=== PATIENT | female | born 1985 | race American Indian/Alaskan Native ===

== ENCOUNTER 2019-12-05 14:26 | Day surgery (SDC) | payer MEDICAID ==
[2019-12-05] MEDS ORDERED: ONDANSETRON 4 MG/2 ML INJ ONE (14:30)
[2019-12-05] MEDS ORDERED: propofoL 200 MG/20 ML VIAL IV ONE (14:44)
[2019-12-05] MEDS ORDERED: SUCCINYLCHOLINE CHLORIDE 200 MG/10 ML INJ MDV ONE (14:44)
[2019-12-05] MEDS ORDERED: SODIUM CHLORIDE 0.9% 1000 ML 1,000 ML ONE (14:44)
[2019-12-05] MEDS ORDERED: fentaNYL 100 MCG/2 ML INJ ONE (14:44)
[2019-12-05] MEDS ORDERED: ROCURONIUM 50 MG/5 ML INJ IV ONE (14:44)
[2019-12-05] MEDS ORDERED: LIDOCAINE MPF (2%) 20 MG/1 ML VIAL 5 ML ONE (14:44)
--- NOTE | 2019-12-05 15:31 | Anesthesia Consultation ---
Anesthesia Consult and Med Hx Date of service: 12/05/19 - Airway Anesthetic Teeth Evaluation: Good ROM Head & Neck: Adequate Mental/Hyoid Distance: Adequate Mallampati Class: Class II Intubation Access Assessment: Probably Good - Pulmonary Exam CTA: Yes - Cardiac Exam Cardiac Exam: RRR - Pre-Operative Health Status ASA Pre-Surgery Classification: ASA2, Emergency Proposed Anesthetic Plan: General - Pulmonary Hx Smoking: Yes ([facility] only) Hx Respiratory Symptoms: No - Cardiovascular System Hx Hypertension: No Hx Heart Attack/AMI: No Hx Percutaneous Transluminal Coronary Angioplasty (PTCA): No - Central Nervous System CVA: No - Gastrointestinal Hx Gastroesophageal Reflux Disease: No - Endocrine Hx Renal Disease: No Hx Liver Disease: No Hx Insulin Dependent Diabetes: No Hx Non-Insulin Dependent Diabetes: No Hx Thyroid Disease: No - Hematic Hx Anemia: No (Recent outpatient Hb 12) - Other Systems Hx Substance Use: Yes ([facility]) Hx Obesity: Yes (BMI 34) - Additional Comments Anesthesia Medical History Comments: No hx anesthetic complications. Patient with recent spontaneous and now with abdominal pain. Sent from OB clinic for emergent dx laparoscopy for possible ectopic . CBC, T&C 2units drawn preop.
[2019-12-05] MEDS ORDERED: ONDANSETRON 4 MG/2 ML INJ IV PRN (15:32)
[2019-12-05] MEDS ORDERED: HYDROmorphone 1 MG/1 ML INJ IV PRN (15:32)
--- NOTE | 2019-12-05 15:32 | Anesthesia Day of Surgery ---
Anesthesia Day of Surgery - Day of Surgery Patient Examined: Yes Patient H&P Reviewed: Yes Patient is NPO: No (last solids (crackers) 12/05/19 1100; emergent surgery)
[2019-12-05] MEDS ORDERED: MIDAZOLAM 2 MG/2 ML INJ ONE (15:36)
[2019-12-05] MEDS ORDERED: SODIUM CHLORIDE 0.9% 1000 ML 1,000 ML IV SCH (15:45)
[2019-12-05 16:06] LABS: Hematocrit 38.9 % (30.3-42.9); Hemoglobin 12.6 gm/dl (10.1-14.3); Mean Corpuscular HGB Conc 33 % (30-34); Mean Corpuscular Volume 91 fl (79-97); Platelet Count 280 K/mm3 (140-440); Red Blood Count 4.29 M/mm3 (3.65-5.03); Red Cell Distribution Width 14.1 % (13.2-15.2)
[2019-12-05] MEDS ORDERED: BUPIVACAINE/PF (0.5%) 5 MG/1 ML 30 ML VIAL INFILTRATI ONE ×2 (16:09→16:30)
[2019-12-05] MEDS ORDERED: dexAMETHasone 20 MG/5 ML VIAL ONE (16:12)
[2019-12-05] MEDS ORDERED: PHENYLEPHRINE/NS 1,000 MCG/10 ML SYRINGE (OR USE) IV ONE (16:13)
[2019-12-05] MEDS ORDERED: SODIUM CHLORIDE 0.9% IRRIG SOLN 2000 ML IR ONE (16:31)
[2019-12-05] MEDS ORDERED: SODIUM CHLORIDE 0.9% IRR 1,500 ML BOTTLE IR ONE (16:31)
[2019-12-05] MEDS ORDERED: HYDROmorphone 1 MG/1 ML INJ ONE (16:34)
--- NOTE | 2019-12-05 17:52 | Post Operative Note ---
Date of procedure: 12/05/19 Pre-op diagnosis: ectopic Post-op diagnosis: same (plus large ovarian cyst) Findings: Patient had a normal-looking uterus and normal left ovary. Patient with a history of a left salpingectomy. Patient had about 200 cc of free fluid blood in the pelvis. In the right adnexa there was a firm area of distention in the middle of the right tube that was palpable. The tube was not ruptured but that is the suspected area where the ectopic was. Patient also had a large cyst off of the right ovary as well. It seemed hemorrhagic but was soft. Because the middle of the tube was distended and firm, I believe that is where the ectopic was. But since that right cyst was large and appeared hemorrhagic, it was also excised in case the ectopic was in that cyst. There is also a thick omental band of tissue adherent to the anterior abdominal wall on the right side which was lysed using the LigaSure device during the case. Procedure: Procedure: Operative laparoscopy, right salpingectomy, right ovarian cystectomy. Indication: This patient is a 33-year-old -0-3-3 with an ectopic and pelvic pain. Of note, the patient also had an ectopic earlier this year. Patient is Rh+. Patient was taken to the operating room and prepped and draped in the usual fashion. A sponge stick was placed in the vagina. Attention was turned abdominally where a 5 mm incision was made in the umbilicus. Veres needle placed in the abdominal cavity and the abdomen was appropriately insufflated with CO2 gas. Veres needle was removed and the 5 mm trocar was placed. Placement confirmed with the camera. The right lower quadrant 5 mm trocar site was made. It was made about 2 fingerbreadths superior medial to the ASIS. The trocar was placed under direct visualization without difficulty. Then suprapubic midline 12 mm incision was made for the 12 mm trocar which was also placed under direct visualization without difficulty. At first attention was turned to the right fallopian tube which was excised using the 5 mm LigaSure device. It was not felt that the tube would be salvageable since the distal half of the tube was distended and and dissecting it out would damage too much o f the tube to render it salvageable. In addition her history is very concerning for recurrence of another ectopic . The tube was removed through the 12 mm port. Attention was now turned to the right ovarian cyst which was able to be clamped off at the base with the LigaSure device and cauterized and excised that way. Good hemostasis on the ovary was noted afterwards. The above-noted omental adhesion was lysed at this point using the LigaSure. That cyst was removed also from the 12 mm trocar site. At this point all the blood and the clots from the cul-de-sac were suctioned out. The abdomen was desufflated and good hemostasis was still noted. The abdomen was then reinsufflated. Surgicel placed around the right ovary. The 12 mm trocar was removed and the [place] device was placed. The trocar site was then closed with 0 Vicryl using the [place] device. The abdomen was fully desufflated at this point. The other 2 trochars were removed and the trocar si td were all closed using 4-0 Monocryl. Sponge stick was removed from the vagina and the procedure was concluded. Patient tolerated the procedure well. All instrument lap counts were correct. Patient taken to the recovery in stable condition. Anesthesia: GETA Estimated blood loss: other (200cc) Pathology: list (1) right tube with suspected ectopic preg. 2) right ovarian cyst) Specimen disposition: to lab Condition: stable Disposition: PACU
--- NOTE | 2019-12-05 18:02 | Short Stay Summary ---
Short Stay Documentation Date of service: 12/05/19 Narrative H&P: Patient admitted and taken to the OR for an ectopic . Please see H&P which was dictated from the office and her op report for details. Patient had a right salpingectomy and a right ovarian cystectomy laparoscopically. Surgery was uncomplicated. Patient sent home with instructions to follow-up 2 weeks postop - History H&P: obtained from office - Allergies and Medications Current Medications: Allergies No Known Allergies Allergy (Unverified 12/05/19 15:06) Home Medications Medication Instructions Recorded Confirmed Last Taken Type Ibuprofen [Motrin 800 MG tab] 800 mg PO Q8HR PRN #30 tablet 12/05/19 Unknown Rx oxyCODONE /ACETAMINOPHEN [Percocet 1 tab PO Q4HR PRN #30 tab 12/05/19 Unknown Rx 5/325] Active Medications Hydromorphone HCl (Dilaudid) 0.5 mg IV Q10MIN PRN PRN Reason: Pain , Severe (7-10) Stop: 12/05/19 23:59 Sodium Chloride (Nacl 0.9% 1000 Ml) 1,000 mls @ 100 mls/hr IV DIRECT [place] Ondansetron HCl (Zofran) 4 mg IV ONCE PRN PRN Reason: Nausea And Vomiting - Disposition Condition at discharge: Stable Disposition: DC-01 TO HOME OR SELFCARE - Discharge Diagnoses (1) Ectopic Status: Acute Short Stay Discharge Plan Follow up with: BLANQUITA BELLE MD [Staff Physician] - 14 Days Forms: Outpatient Surgery DC Inst. Prescriptions: Ibuprofen [Motrin 800 MG tab] 800 mg PO Q8HR PRN #30 tablet PRN Reason: Pain , Severe (7-10) oxyCODONE /ACETAMINOPHEN [Percocet 5/325] 1 tab PO Q4HR PRN #30 tab PRN Reason: Pain , Severe (7-10)
--- NOTE | 2019-12-05 18:22 | Post Anesthesia Evaluation ---
- Post Anesthesia Evaluation Patient Participated: Yes Airway Patent: Yes Stable Respiratory Function: Yes Nausea/Vomiting: No Temp > 96.8F: Yes Pain Manageable: Yes Adequeate Hydration: Yes Anesthesia Complications: No
[2019-12-05] MEDS ORDERED: oxyCODONE /ACETAMINOPHEN 5-325MG TAB ONE (18:36)
[2019-12-05 20:41] VITALS: BP 128/52
== END 2019-12-05 14:27 | disposition home or self-care (01) ==
LOC: OR 14:26
PROVIDERS: ATTEND Obstetrics & Gynecology
DX: O00.101 Right tubal pregnancy without intrauterine pregnancy (principal); N83.201 Unspecified ovarian cyst, right side; K66.0 Peritoneal adhesions (postprocedural) (postinfection); E66.9 Obesity, unspecified; Z79.899 Other long term (current) drug therapy; Z98.890 Other specified postprocedural states; Z68.34 Body mass index [BMI] 34.0-34.9, adult
CPT/HCPCS: 36415; 58662; 59151; 85027; 86850; 86900; 86901; 86920; 88305; 88341; 88342; A4217; J0330; J1100; J1170; J2250; J2370; J2405; J2704; J3010; J7030